=== PATIENT | female | born 1945 | race Asian ===

== ENCOUNTER 2016-09-03 06:53 | Day surgery (SDC) | payer OTHER ==
[~2016-09-03] VITALS: Ht 30.5 cm; Wt 0.5 kg
== END 2016-09-03 09:50 | disposition home or self-care (01) ==
LOC: OR 06:53
PROC: 08RK3JZ Replacement of Left Lens with Synthetic Substitute, Percutaneous Approach (ICD-10-PCS; principal; 2016-09-03)
DX: H25.812 Combined forms of age-related cataract, left eye (principal)
CPT/HCPCS: 66984; V2632

== ENCOUNTER 2016-10-01 09:10 | Day surgery (SDC) | payer OTHER | END 2016-10-01 11:59 | disposition home or self-care (01) | LOC: OR 09:10 | PROC: 08RJ3JZ Replacement of Right Lens with Synthetic Substitute, Percutaneous Approach (ICD-10-PCS; principal; 2016-10-01) | DX: H25.811 Combined forms of age-related cataract, right eye (principal) | CPT/HCPCS: 66984; V2632 ==

== ENCOUNTER 2016-10-23 11:40 | Outpatient (CLI) | payer OTHER ==
[2016-10-23 12:06] LABS: PLATELET COUNT 223 K/uL (152-353)
[2016-10-23 12:34] LABS: POTASSIUM 4.1 mmol/L (3.6-5.2); SODIUM 144 mmol/L (136-145)
== END 2016-10-23 19:44 | disposition home or self-care (01) ==
LOC: LAB 11:40
PROVIDERS: Nurse Practitioner Family
DX: Z00.00 Encounter for general adult medical examination without abnormal findings (principal); I10 Essential (primary) hypertension; E78.4 Other hyperlipidemia; K21.9 Gastro-esophageal reflux disease without esophagitis; R53.83 Other fatigue; R53.81 Other malaise; Z79.899 Other long term (current) drug therapy; E55.9 Vitamin D deficiency, unspecified; Z51.81 Encounter for therapeutic drug level monitoring
CPT/HCPCS: 80053; 80061; 82306; 82607; 83036; 84436; 84443; 85027

== ENCOUNTER 2016-12-13 08:37 | Outpatient (CLI) | payer OTHER | END 2016-12-13 19:39 | disposition home or self-care (01) | LOC: RESP 08:37 | DX: R05 Cough (principal); R00.2 Palpitations | CPT/HCPCS: 93005 ==

== ENCOUNTER 2017-09-06 09:17 | Outpatient (CLI) | payer OTHER | END 2017-09-06 21:22 | disposition home or self-care (01) | LOC: MAMMO 09:17 | DX: Z12.31 Encounter for screening mammogram for malignant neoplasm of breast (principal); M81.0 Age-related osteoporosis without current pathological fracture ==

== ENCOUNTER 2017-09-19 09:16 | Outpatient (CLI) | payer OTHER | END 2017-09-19 22:55 | disposition home or self-care (01) | LOC: US 09:16 | DX: R94.5 Abnormal results of liver function studies (principal) ==

== ENCOUNTER 2017-10-10 08:45 | Outpatient (CLI) | payer OTHER | END 2017-10-10 19:27 | disposition home or self-care (01) | LOC: MAMMO 08:45 | DX: R92.8 Other abnormal and inconclusive findings on diagnostic imaging of breast (principal) ==

== ENCOUNTER 2017-10-16 08:16 | Outpatient (CLI) | payer OTHER ==
[~2017-10-16] VITALS: Ht 30.5 cm; Wt 0.5 kg
== END 2017-10-16 20:52 | disposition home or self-care (01) ==
LOC: US 08:16
PROC: 0HBT3ZX Excision of Right Breast, Percutaneous Approach, Diagnostic (ICD-10-PCS; principal; 2017-10-16)
DX: R92.8 Other abnormal and inconclusive findings on diagnostic imaging of breast (principal)

== ENCOUNTER 2017-11-07 12:47 | Inpatient (IN) | payer OTHER ==
[~2017-11-07] VITALS: Ht 165.1 cm; Wt 82.3 kg
[2017-11-07 13:04] LABS: PLATELET COUNT 212 K/uL (152-353)
[2017-11-07 13:32] LABS: POTASSIUM 3.8 mmol/L (3.6-5.2)
[2017-11-07 15:19] VITALS: BP 163/96; TEMP 97.5; Ht 165.1 cm; Wt 82.3 kg
[2017-11-07] MEDS ORDERED: B12-ACTIVE1 MG PO (15:42)
[2017-11-07 16:00] VITALS: BP 163/96; TEMP 97.5
[2017-11-07] MEDS ORDERED: METOPROLOL25 M1 (16:34)
[2017-11-07] MEDS ORDERED: SIMV40TA57 (16:35)
[2017-11-07] MEDS ORDERED: ALLERGY10 MG (16:35)
[2017-11-07] MEDS ORDERED: MONTELUKAST SOD10 MG PO (16:36)
[2017-11-07] MEDS ORDERED: HYDROCHLOROT12.5 M1 PO (16:36)
[2017-11-07] MEDS ORDERED: CVS OMEPRAZOLE20 MG (16:37)
[2017-11-07] MEDS ORDERED: DILT-XR120 MG (16:39)
[2017-11-07 20:00] VITALS: BP 129/68; TEMP 99
[2017-11-08] VITALS: BP 123/76; TEMP 98.2
[2017-11-08 04:00] VITALS: BP 134/75; TEMP 97.9
[2017-11-08 05:54] LABS: PLATELET COUNT 194 K/uL (152-353)
[2017-11-08 06:39] LABS: POTASSIUM 2.9 mmol/L (3.6-5.2)
[2017-11-08 08:00] VITALS: BP 128/72; TEMP 97.5
[2017-11-08 12:00] VITALS: BP 114/78; TEMP 98
[2017-11-08 16:00] VITALS: BP 146/84; TEMP 97.5
[2017-11-08 20:05] VITALS: BP 126/82; TEMP 98
[2017-11-09 00:05] VITALS: BP 142/72; TEMP 97.7
[2017-11-09 04:03] VITALS: BP 132/81; TEMP 97.9
[2017-11-09 05:16] LABS: PLATELET COUNT 166 K/uL (152-353)
[2017-11-09 05:38] LABS: POTASSIUM 3.5 mmol/L (3.6-5.2)
[2017-11-09 07:40] VITALS: BP 118/65; TEMP 98.1
[2017-11-09 11:34] VITALS: BP 135/74; TEMP 97
== END 2017-11-09 15:55 | disposition home or self-care (01) | DRG 639 ==
LOC: LAB 12:47 → MED/SURG 13:50
PROVIDERS: Nurse Practitioner Family; ADMIT Emergency Medicine
DX: E11.65 Type 2 diabetes mellitus with hyperglycemia (principal); I10 Essential (primary) hypertension; F41.8 Other specified anxiety disorders; K21.9 Gastro-esophageal reflux disease without esophagitis; K59.09 Other constipation; F32.9 Major depressive disorder, single episode, unspecified; M13.88 Other specified arthritis, other site; C50.919 Malignant neoplasm of unspecified site of unspecified female breast; I25.2 Old myocardial infarction
CPT/HCPCS: 36415; 80053; 80061; 81000; 82947; 82948; 83036; 83735; 84439; 84443; 85027; 96365; 96366; 96372; 96375; J1815; J3480; J3490

== ENCOUNTER 2017-11-12 06:27 | Emergency (ER) | payer OTHER ==
[~2017-11-12] VITALS: Ht 165.1 cm; Wt 82.1 kg
[~2017-11-12 06:27] MED LIST: ALLERGY10 MG; B12-ACTIVE1 MG PO; CVS OMEPRAZOLE20 MG; DILT-XR120 MG; HYDROCHLOROT12.5 M1 PO; METOPROLOL25 M1; MONTELUKAST SOD10 MG PO; SIMV40TA57
[2017-11-12] MEDS ORDERED: BIOTIN PO (06:44)
[2017-11-12] MEDS ORDERED: ASPIRIN 81 LOW81 MG PO (06:44)
[2017-11-12] MEDS ORDERED: INSUINJP SC (06:45)
[2017-11-12] MEDS ORDERED: JANUMET1 TAB PO (06:46)
[2017-11-12 08:18] LABS: POTASSIUM 3.7 mmol/L (3.6-5.2)
[2017-11-12 10:50] VITALS: BP 141/71; TEMP 98
== END 2017-11-12 10:50 | disposition home or self-care (01) ==
LOC: ED 06:27
PROVIDERS: Internal Medicine
DX: E13.65 Other specified diabetes mellitus with hyperglycemia (principal); I10 Essential (primary) hypertension; Z79.4 Long term (current) use of insulin
CPT/HCPCS: 36415; 80053; 82947; 96360; 96361; 96372; 99284; J1815

== ENCOUNTER 2017-12-03 13:50 | Outpatient (CLI) | payer OTHER ==
[~2017-12-03 13:50] MED LIST changes: +ASPIRIN 81 LOW81 MG PO; +BIOTIN PO; +INSUINJP SC; +JANUMET1 TAB PO
[2017-12-03 14:23] LABS: POTASSIUM 3.6 mmol/L (3.6-5.2)
[2017-12-03 14:24] LABS: PLATELET COUNT 243 K/uL (152-353)
[2017-12-03 14:35] LABS: PARTIAL THROMBOPLASTIN TIME 28.7 SECONDS (24.5-33.6)
== END 2017-12-03 22:25 | disposition home or self-care (01) ==
LOC: LAB 13:50
PROVIDERS: Nurse Practitioner Family
DX: Z01.818 Encounter for other preprocedural examination (principal); Z51.81 Encounter for therapeutic drug level monitoring
CPT/HCPCS: 80053; 85027; 85610; 85730

== ENCOUNTER 2018-01-30 14:13 | Outpatient (CLI) | payer OTHER ==
[2018-01-30 14:37] LABS: POTASSIUM 3.9 mmol/L (3.6-5.2)
[2018-01-30 15:15] LABS: PLATELET COUNT 246 K/uL (152-353)
== END 2018-01-30 19:21 | disposition home or self-care (01) ==
LOC: LAB 14:13
PROVIDERS: Nurse Practitioner Family
DX: E11.9 Type 2 diabetes mellitus without complications (principal); E78.4 Other hyperlipidemia; K21.9 Gastro-esophageal reflux disease without esophagitis; I10 Essential (primary) hypertension; R53.83 Other fatigue; Z79.899 Other long term (current) drug therapy; Z51.81 Encounter for therapeutic drug level monitoring
CPT/HCPCS: 80053; 80061; 83036; 84436; 84443; 85027

== ENCOUNTER 2019-05-27 13:00 | Outpatient (CLI) | payer OTHER | END 2019-05-27 22:29 | disposition home or self-care (01) | LOC: MAMMO 13:00 | DX: Z12.31 Encounter for screening mammogram for malignant neoplasm of breast (principal); E11.9 Type 2 diabetes mellitus without complications; I10 Essential (primary) hypertension; E78.49 Other hyperlipidemia; K21.9 Gastro-esophageal reflux disease without esophagitis; Z85.3 Personal history of malignant neoplasm of breast; Z85.41 Personal history of malignant neoplasm of cervix uteri; I25.2 Old myocardial infarction ==

== ENCOUNTER 2020-01-06 09:31 | Outpatient (CLI) | payer OTHER | END 2020-01-06 21:30 | disposition home or self-care (01) | LOC: LAB 09:31 | DX: U07.1 COVID-19 (principal); R50.9 Fever, unspecified; R53.83 Other fatigue; H93.8X9 Other specified disorders of ear, unspecified ear | CPT/HCPCS: 87635; G2023; U00003 ==

== ENCOUNTER 2020-01-06 10:29 | Outpatient (CLI) | payer OTHER | END 2020-01-06 21:31 | disposition home or self-care (01) | LOC: RAD 10:29 | DX: R50.9 Fever, unspecified (principal); R53.83 Other fatigue; R05 Cough; R09.81 Nasal congestion ==

== ENCOUNTER 2020-03-10 08:45 | Outpatient (CLI) | payer OTHER | END 2020-03-10 23:02 | disposition home or self-care (01) | LOC: RAD 08:45 | DX: I10 Essential (primary) hypertension (principal); E78.49 Other hyperlipidemia; E11.9 Type 2 diabetes mellitus without complications; K21.9 Gastro-esophageal reflux disease without esophagitis; M25.579 Pain in unspecified ankle and joints of unspecified foot ==

== ENCOUNTER 2020-05-31 10:52 | Outpatient (CLI) | payer OTHER | END 2020-05-31 22:27 | disposition home or self-care (01) | LOC: MAMMO 10:52 | PROVIDERS: ATTEND Nurse Practitioner Family | DX: Z12.31 Encounter for screening mammogram for malignant neoplasm of breast (principal) ==

== ENCOUNTER 2020-06-08 12:00 | Outpatient (CLI) | payer OTHER | END 2020-06-08 21:08 | disposition home or self-care (01) | LOC: RAD 12:00 | PROVIDERS: ATTEND Nurse Practitioner Family | DX: M79.671 Pain in right foot (principal); S99.911A Unspecified injury of right ankle, initial encounter ==

== ENCOUNTER 2021-01-06 09:33 | Outpatient (CLI) | payer OTHER | END 2021-01-06 21:55 | disposition home or self-care (01) | LOC: RAD 09:33 | PROVIDERS: ATTEND Nurse Practitioner Family | DX: Z13.820 Encounter for screening for osteoporosis (principal); I10 Essential (primary) hypertension; E78.49 Other hyperlipidemia; E11.9 Type 2 diabetes mellitus without complications; K21.9 Gastro-esophageal reflux disease without esophagitis; R89.8 Other abnormal findings in specimens from other organs, systems and tissues; N95.8 Other specified menopausal and perimenopausal disorders ==

== ENCOUNTER 2021-06-05 09:34 | Outpatient (CLI) | payer OTHER | END 2021-06-05 19:18 | disposition home or self-care (01) | LOC: MAMMO 09:34 | PROVIDERS: ATTEND Nurse Practitioner Family | DX: Z12.31 Encounter for screening mammogram for malignant neoplasm of breast (principal); I10 Essential (primary) hypertension; E78.49 Other hyperlipidemia; E11.9 Type 2 diabetes mellitus without complications; K21.9 Gastro-esophageal reflux disease without esophagitis; R89.8 Other abnormal findings in specimens from other organs, systems and tissues ==

== ENCOUNTER 2021-10-16 07:52 | Outpatient (CLI) | payer OTHER | END 2021-10-16 19:08 | disposition home or self-care (01) | LOC: RAD 07:52 | PROVIDERS: ATTEND Specialist | DX: C50.211 Malignant neoplasm of upper-inner quadrant of right female breast (principal); Z79.811 Long term (current) use of aromatase inhibitors; N95.1 Menopausal and female climacteric states ==

== ENCOUNTER 2021-12-27 12:10 | Emergency (ER) | payer OTHER ==
[~2021-12-27] VITALS: Ht 162.6 cm; Wt 76.0 kg
[2021-12-27 12:15] VITALS: TEMP 96.7
[2021-12-27 13:04] LABS: PLATELET COUNT 5 K/uL (152-353)
[2021-12-27 13:06] LABS: POTASSIUM 3.6 mmol/L (3.6-5.2); SODIUM 143 mmol/L (136-145)
[2021-12-27 13:13] LABS: PARTIAL THROMBOPLASTIN TIME 25.1 SECONDS (24.5-33.6)
[2021-12-27 14:30] VITALS: BP 118/82
== END 2021-12-27 14:52 | disposition home or self-care (01) ==
LOC: ED 12:10
PROVIDERS: Hospitalist
DX: D69.6 Thrombocytopenia, unspecified (principal)
CPT/HCPCS: 80053; 82550; 83880; 84484; 85027; 85610; 85730; 93005; 96372; 99283; J1100

== ENCOUNTER 2022-07-04 09:55 | Outpatient (CLI) | payer OTHER | END 2022-07-04 19:15 | disposition home or self-care (01) | LOC: MAMMO 09:55 | PROVIDERS: ATTEND Nurse Practitioner Family | DX: Z12.31 Encounter for screening mammogram for malignant neoplasm of breast (principal); Z85.3 Personal history of malignant neoplasm of breast; Z08 Encounter for follow-up examination after completed treatment for malignant neoplasm ==

== ENCOUNTER 2022-08-02 07:47 | Outpatient (CLI) | payer OTHER ==
[2022-08-02 08:11] LABS: PLATELET COUNT 228 K/uL (152-353)
== END 2022-08-02 21:44 | disposition home or self-care (01) ==
LOC: LABW 07:47
PROVIDERS: ATTEND Nurse Practitioner Family
DX: Z00.00 Encounter for general adult medical examination without abnormal findings (principal); I10 Essential (primary) hypertension; E11.9 Type 2 diabetes mellitus without complications; E55.9 Vitamin D deficiency, unspecified; Z79.899 Other long term (current) drug therapy
CPT/HCPCS: 36415; 80053; 80061; 81002; 82043; 82306; 82570; 83036; 84439; 84443; 85027; 87088

== ENCOUNTER 2023-08-16 08:29 | Outpatient (CLI) | payer OTHER | END 2023-08-16 20:01 | disposition home or self-care (01) | LOC: US 08:29 | PROVIDERS: ATTEND Nurse Practitioner Family | DX: R94.5 Abnormal results of liver function studies (principal) ==